=== PATIENT | female | born 2005 | race Two or more races ===

== ENCOUNTER 2024-04-23 03:26 | Emergency (ER) | payer OTHER ==
[~2024-04-23] VITALS: Ht 165.1 cm; Wt 95.3 kg
[2024-04-23] MEDS ORDERED: FAMOtidine 10 MG/ML (4ML VIAL) IV PUSH STA (04:17)
[2024-04-23] MEDS ORDERED: RINGERS SOLUTION,LACTATED 1,000 ML IV STA (04:17)
[2024-04-23] MEDS ORDERED: METOCLOPRAMIDE HCL 5 MG/ML VIAL IM STA (04:18)
[2024-04-23] MEDS ORDERED: PROMETHAZINE HCL 25 MG/ML AMPUL IM STA (04:19)
[2024-04-23 04:46] LABS: HEMATOCRIT 41.3 % (36.0-45.00); HEMOGLOBIN 14.1 g/dL (12.0-15.00); MEAN CELL VOLUME 83.2 fL (80.00-100.00); MEAN CORPUSCULAR HEMOGLOBIN 28.3 pg (27.00-32.0); PLATELET COUNT 367 K/uL (150-450); RED BLOOD COUNT 4.97 M/uL (4.00-6.00); RED CELL DISTRIBUTION WIDTH 13.5 % (11.5-14.5)
[2024-04-23 05:06] LABS: CREATININE SERUM 0.77 mg/dL (0.55-1.02); GFR 95.57; POTASSIUM 3.6 mEq/L (3.5-5.1)
== END 2024-04-23 08:24 | disposition home or self-care (01) ==
LOC: EMR PED 03:29 → ER 03:29 → EMR PED 04:01 → ER 08:24
DX: K52.9 Noninfective gastroenteritis and colitis, unspecified (principal); E86.0 Dehydration; Z20.822 Contact with and (suspected) exposure to COVID-19